=== PATIENT | male | born 1940 | race Caucasian/White ===

== ENCOUNTER 2022-08-28 09:59 | Day surgery (SDC) | payer MEDICARE, OTHER ==
[~2022-08-28 09:59] MED LIST: Midazolam 1 MG/ML 2 ML SDV ONE; Propofol 200 MG/20 ML SDV ONE
[2022-08-28] MEDS ORDERED: Sodium Chloride 0.9% 10 ML Syringe FLUSH PRN (11:45)
[2022-08-28] MEDS ORDERED: Lactated Ringers 1,000 ML IV SCH (11:45)
[2022-08-28] MEDS ORDERED: Glycopyrrolate 0.2 MG/ML SDV ONE (12:41)
[2022-08-28 13:39] VITALS: BP 130/69; PULSE 66
== END 2022-08-28 14:40 | disposition home or self-care (01) ==
LOC: LL.SDS 09:59
PROVIDERS: ATTEND Surgery
DX: K21.00 Gastro-esophageal reflux disease with esophagitis, without bleeding (principal); K22.89 Other specified disease of esophagus; K22.70 Barrett's esophagus without dysplasia; M23.51 Chronic instability of knee, right knee; I10 Essential (primary) hypertension; E78.00 Pure hypercholesterolemia, unspecified; R73.09 Other abnormal glucose; R97.20 Elevated prostate specific antigen [PSA]; R53.83 Other fatigue; H91.93 Unspecified hearing loss, bilateral; Z86.010 Personal history of colon polyps; Z79.899 Other long term (current) drug therapy
CPT/HCPCS: 00813; J2250; J2704; J3490; J7120